=== PATIENT | male | born 1950 | race Caucasian/White ===

== ENCOUNTER 2019-01-14 13:55 | Observation (INO) ==
[2019-01-14] MEDS ORDERED: ASPIRIN PO ONE (14:04)
[2019-01-14 14:45] LABS: BASO# 0.02 X1000 (0.0-0.2); BASO% 0.3 % (0.0-0.8); EOS# 0.29 X1000 (0.0-0.7); EOS% 4.1 % (0.0-10.0); HEMATOCRIT 34.8 % (42.0-52.0); HEMOGLOBIN 11.5 g/dL (14.0-18.0); IMM GRAN# 0.03 X1000 (0.0-0.04); IMM GRAN% 0.4 % (0.0-0.5); LYMPH# 1.56 X1000 (1.2-3.4); MCH 27.3 PG (27-31); MCV 82.7 FL (81-99); MONO# 0.58 X1000 (0.11-0.59); MONO% 8.2 % (1.7-9.3); MPV 8.6 FL (7.4-10.4); NEUT# 4.61 X1000 (1.4-6.5); PLT 296 X1000 (130-400); RBC 4.21 XMIL (4.7-6.1); RDW 15.4 % (11.5-14.5); WBC 7.09 X1000 (4.8-10.8)
--- NOTE | 2019-01-14 15:00 | Diag Imaging Result Doc PS360 ---
EXAM: CHEST-2 VIEWS HISTORY: chest pain TECHNIQUE: Chest two views COMPARISON: 12/05/2015 FINDINGS: The lungs are well expanded. The heart is not enlarged. The vessels are not distended. There are no infiltrates. No pleural effusions. IMPRESSION: No acute abnormality. Electronically signed by Philippe Trimble 01/14/2019 2:57 PM
--- NOTE | 2019-01-14 15:14 | EKG Report ---
Test Performed on : 01/14/2019 2:12:28 PM Test Reason : chest pain Blood Pressure : / mmHG Vent. Rate : 051 BPM Atrial Rate : 051 BPM P-R Int : 192 ms QRS Dur : 114 ms QT Int : 476 ms P-R-T Axes : 011 -10 041 degrees QTc Int : 438 ms Sinus bradycardia. Incomplete left bundle branch block Nonspecific T wave abnormality Abnormal ECG No previous ECGs available Unconfirmed Result
[2019-01-14 15:32] LABS: ALBUMIN 3.9 g/dL (3.5-5.0); CALCIUM 8.8 mg/dL (8.8-10.2); CREATININE 1.4 mg/dL (0.7-1.2); MAGNESIUM 2.2 mg/dL (1.5-2.7); POTASSIUM 3.9 mmol/L (3.5-5.1); TOTAL BILIRUBIN 0.4 mg/dL (0.20-1.00); TOTAL PROTEIN 7.5 g/dL (6.3-8.3)
[2019-01-14 15:52] LABS: CK-MB 5.27 ng/mL (0.0-5.0)
--- NOTE | 2019-01-14 16:48 | PROVIDER DOCUMENTATION ---
This chart was entered by Dani Medrano Scribe, acting as scribe for Kory Schumacher MD. HPI-Chest Pain - General Chief Complaint: Chest Pain Stated Complaint: CHEST PAINS Time Seen by Provider: 01/14/19 14:10 Source: patient Allergies/Adverse Reactions: Patient Allergies Allergy/AdvReac Type Severity Reaction Status Date / Time egg Allergy ANAPHYLAXIS Verified 01/14/19 14:37 Milk Containing Products Allergy Unknown Verified 01/14/19 14:37 Home Medications: Home Medication List Medication Instructions Recorded Confirmed Last Taken Type Furosemide [Lasix] 40 mg PO BID 05/19/14 01/14/19 11/05/15 08:00 History Insulin Novolog 70/30 [Novolog Mix 80 units SQ BID 05/19/14 01/14/19 11/05/15 08:00 History 70/30] Lisinopril 20 mg PO DAILY 11/17/14 01/14/19 11/05/15 08:00 History Omeprazole 20 mg PO BID 08/25/15 01/14/19 11/05/15 08:00 History Atenolol 25 mg PO DAILY 01/14/19 01/14/19 Unknown History Sertraline [Zoloft] 50 mg PO DAILY 01/14/19 01/14/19 Unknown History - History of Present Illness-CP Nature of Presenting Problem: 68 yom presents to ed with cc of left side chest pain x 6 months. Reports worsening past 3 days with radiation into left arm and left shoulder. Reports 5/10 pain worse with exertion and has sob. Reports dizziness upon standing at times. Location: reports: other (left shoudler) Chest Pain Radiation: reports: arms, shoulders Quality of Pain: reports: sharp Severity in ED: moderate Onset/Duration: unsure Timing: still present, getting worse Review of Systems - Adult - REVIEW OF SYSTEMS - ADULT Constitutional: denies: chills, fever, fatique Eyes: reports: no symptoms reported Ears, Nose, Mouth & Throat: denies: ear pain, sinus problem, throat swelling Cardiovascular: reports: chest pain. denies: irregular heart rate, syncope Respiratory: reports: shortness of breath. denies: cough, dyspnea on exertion, pleurisy, wheezing Gastrointestinal: denies: abdominal pain, nausea, vomiting Genitourinary: denies: dysuria, discharge, frequent UTI's, hematuria Musculoskeletal: denies: bone pain, back pain, joint pain, neck pain Integumentary: reports: no symptoms reported Neurological: denies: ataxia, dizziness/vertigo, loss of balance, numbness, paresthesia, seizure Psychiatric: reports: no symptoms reported Endocrine: reports: no symptoms reported Hematologic/Lymphatic: reports: no symptoms reported Allergic/Immunologic: reports: no symptoms reported All Other Systems: Reviewed and Negative Past History - Adult - PAST MEDICAL HISTORY-ADULT Review of Records: reports: Nursing Assessment Review, Medications Reviewed Major Childhood Illnesses: reports: denies history Cardiovascular: reports: CHF, HTN Respiratory: reports: sleep apnea Gastrointestinal: reports: GERD Obstetrical/Gynecological: reports: denies history Genitourinary: reports: denies history Musculoskeletal: reports: denies history Neurological: reports: denies history Psychiatric: reports: ptsd Endocrine/Immune: reports: Diabetes Other Conditions: reports: cataract/glaucoma - PRIOR SURGERIES/PROCEDURES Surgical/Procedure History: reports: reviewed, not pertinent - IMMUNIZATION STATUS Childhood Immunizations: See Nurse Assessment Flu Vaccine: See Nurse Assessment - FAMILY HISTORY Family History: reviewed, not pertinent - SOCIAL HISTORY Smoking: other (former 37 years ago) Physical Exam-General - PHYSICAL EXAM-ADULT Initial Vital Signs Reviewed: Yes - CONSTITUTIONAL General Appearance: appears well, alert, no apparent distress, obese - EYES Eyes: PERRL/EOMI, pink conjunctivae - NECK Neck: non-tender, full range of motion, supple, normal inspection - RESPIRATORY Respiratory: chest non-tender, lungs clear, normal breath sounds, no pleuratic chest pain, no respiratory distress, no accessory muscle use. negative: crackles, rales, rhonchi, stridor, wheezing - CARDIOVASCULAR Cardiovascular: bradycardia (HR drops into the 40's) - GASTROINTESTINAL (ABDOMEN) Abdominal Exam: normal bowel sounds, non tender, soft, no organomegaly, no pulsatile mass - MUSCULOSKELETAL Back Exam: normal inspection Extremity: normal range of motion, non-tender - SKIN Integumentary: normal color, normal turgor, warm/dry - NEUROLOGIC Neurologic: grossly normal - PSYCHIATRIC Psych/Mental Status: normal mood/affect, normal thought content, normal thought process, oriented x 3 - HEART Score HEART Score: History: Moderately Suspicious HEART Score: ECG: Non-Specific Repolarization Disturbance/LBBB/PM HEART Score: Age: > or = 65 Years HEART Score: Risk Factors for Atherosclerotic Disease: 1 or 2 Risk Factors HEART Score: Troponin: < or = Normal Limit Total HEART Score:: 5 Progress - PLAN OF CARE/RESULTS Progress/Plan/Lab Results: Vital Signs - 8 hr 01/14/19 13:56 01/14/19 16:20 Temperature 98 F 98.2 F Pulse Rate 57 L 47 L Respiratory Rate 18 18 Blood Pressure 169/75 145/73 O2 Sat by Pulse Oximetry 97 97 Laboratory Results - last 24 hr 01/14/19 01/14/19 01/14/19 14:20 14:20 14:20 WBC 7.09 RBC 4.21 L Hgb 11.5 L Hct 34.8 L MCV 82.7 MCH 27.3 MCHC 33.0 RDW Std Deviation 15.4 H Plt Count 296 MPV 8.6 Immature Gran % (Auto) 0.4 Neut % (Auto) 65.0 Lymph % (Auto) 22.0 [place] % (Auto) 8.2 Eos % (Auto) 4.1 Baso % (Auto) 0.3 Immature Gran # (Auto) 0.03 Neut # (Auto) 4.61 Lymph # (Auto) 1.56 [place] # (Auto) 0.58 Eos # (Auto) 0.29 Baso # (Auto) 0.02 D-Dimer, Quantitative Sodium Potassium Chloride Carbon Dioxide Anion Gap BUN Creatinine Estimated GFR/1.73 m2 BUN/Creatinine Ratio Glucose Calculated Osmolality Calcium Magnesium Total Bilirubin AST ALT Alkaline Phosphatase Creatine Kinase 261 H Creatine Kinase Index 2.0 CK-MB (CK-2) 5.27 H Troponin T 0.011 Yhy-S-Ykwijqoffws Pept Total Protein Albumin Globulin Albumin/Globulin Ratio 01/14/19 01/14/19 01/14/19 14:20 14:20 14:20 WBC RBC Hgb Hct MCV MCH MCHC RDW Std Deviation Plt Count MPV Immature Gran % (Auto) Neut % (Auto) Lymph % (Auto) [place] % (Auto) Eos % (Auto) Baso % (Auto) Immature Gran # (Auto) Neut # (Auto) Lymph # (Auto) [place] # (Auto) Eos # (Auto) Baso # (Auto) D-Dimer, Quantitative 0.52 Sodium 139 Potassium 3.9 Chloride 99 Carbon Dioxide 27 Anion Gap 13 BUN 17 Creatinine 1.4 H Estimated GFR/1.73 m2 50 BUN/Creatinine Ratio 12 Glucose 278 H Calculated Osmolality 289 Calcium 8.8 Magnesium 2.2 Total Bilirubin 0.40 AST 18 ALT 20 Alkaline Phosphatase 110 Creatine Kinase Creatine Kinase Index CK-MB (CK-2) Troponin T Oen-H-Zudugyvmspw Pept 180 Total Protein 7.5 Albumin 3.9 Globulin 4.0 Albumin/Globulin Ratio 1.0 Orders Category Date Time Status Admit - [facility] Routine AdmDCTranf 01/14/19 17:20 Active Cardiac Monitoring DIRECTED Care 01/14/19 14:04 Active Nursing- Obtain EKG ONCE Care 01/14/19 14:04 Active CHEST-2 VIEWS [RAD] Stat Exams 01/14/19 14:04 Completed CBC WITH DIFF [HEME] Stat Lab 01/14/19 14:20 Completed CK PROFILE [SP CHEM] Stat Lab 01/14/19 14:20 Completed CK PROFILE [SP CHEM] Stat Lab 01/14/19 17:36 Ordered CMP [COMPREHENSIVE METABOLIC PANEL] [CHEM] Stat Lab 01/14/19 14:20 Completed D-DIMER [COAG] Stat Lab 01/14/19 14:20 Completed MAGNESIUM [CHEM] Stat Lab 01/14/19 14:20 Completed PRO B-NATRIURETIC PEPTIDE Stat Lab 01/14/19 14:20 Completed TROPONIN T Stat Lab 01/14/19 14:20 Completed TROPONIN T Stat Lab 01/14/19 17:36 Ordered Aspirin Med 01/14/19 14:04 Discontinued 325 mg PO NOW ONE EKG [EKG] Stat Ther 01/14/19 14:04 Draft EKG [EKG] Stat Ther 01/14/19 17:36 Ordered Transfer/Admit Order [TRANSFER] Routine Transfer 01/14/19 16:47 Ordered Discussed findings with pt who asked to be sent to [facility] for admission. At recheck pt now would like to stay here. Pt was discussed with Dr Cervantes who agreed to admit. Result Diagrams: 01/14/19 14:20 01/14/19 14:20 - EKG 1 Time of EKG reading by physician:: 14:12 EKG Read and Signed by:: Kory Schumacher EKG Interpretation (*Must complete 3 of following elements*): Abnormal Rate: 51 Rhythm: sinus shima [place]: normal QRS: LBB (incomplete) ST Wave: non-specific ST changes 2 Time of EKG reading by physician:: 17:49 EKG Read and Signed by:: Kory Schumacher EKG Interpretation (*Must complete 3 of following elements*): Abnormal (prolomged QT) Rate: 48 Rhythm: SB [place]: normal ST Wave: non-specific ST changes - XRAY 1 XRAY: Bilateral XRAY Study: Chest Impression: Normal (EXAM: CHEST-2 VIEWS HISTORY: chest pain TECHNIQUE: Chest two views COMPARISON: 12/05/2015 FINDINGS: The lungs are well expanded. The heart is not enlarged. The vessels are not distended. There are no infiltrates. No pleural effusions. IMPRESSION: No acute abnormality. Electronically signed by Philippe Trimble 01/14/2019 2:57 PM 01/14/191456 Interpreting Physician: Philippe Trimble MD Dictated Date/Time: 01/14/191456 cc: Kory Schumacher MD; None,PCP) - CONSULTS/PCP/HOSPITALIST Notification #1 *Consult/PCP/Hospitalist*: [facility] Time Discussed: 16:15 Consult Disposition: other (sending transfer packet.) #2 Consult: Dr Cervantes Time Discussed: 16:47 Consult Disposition: Admit Departure - Departure Date of Disposition Decision: 01/14/19 Time of Disposition Decision: 16:47 DIAGNOSIS: Chest pain, Symptomatic bradycardia Disposition: ADMITTED INPATIENT 09 Certified Medical Emergency: Emergent Condition: Fair Referrals and Follow-Ups: None,PCP [Primary Care Provider] - - Critical Care Note This patient required my direct & personal management of CC.: No Attestation - Physician/ HERNAN Attestation Patient care was provided by Advanced Practice Provider:: No The physician spent face to face time with patient:: Yes Advanced Practice Provider documentation review:: Supervising physician onsite and consulted in the evaluation and care of this patient. The physician did have a face to face encounter with the patient. This chart was documented by the indicated scribe, (Dani Medrano Scribe) and accurately reflects the services I performed and decisions made by me, Kory Schumacher MD, as attested by the provider's signature.
--- NOTE | 2019-01-14 18:04 | EKG Report ---
Test Performed on : 01/14/2019 5:49:17 PM Test Reason : #2 Blood Pressure : / mmHG Vent. Rate : 048 BPM Atrial Rate : 048 BPM P-R Int : 184 ms QRS Dur : 104 ms QT Int : 518 ms P-R-T Axes : 027 002 039 degrees QTc Int : 462 ms Sinus bradycardia. Nonspecific T wave abnormality Prolonged QT Abnormal ECG When compared with ECG of 14-JAN-2019 14:12, (Unconfirmed) No significant change was found Unconfirmed Result
--- NOTE | 2019-01-14 18:06 | HISTORY AND PHYSICAL ---
PRIMARY CARE PHYSICIAN: Dr. Keller at the [facility] in [place]. CHIEF COMPLAINT: Chest pain. HISTORY OF PRESENT ILLNESS: This is a 68-year-old morbidly obese, male who presents to [facility] ER with left-sided chest pain intermittently over the last 6 months, but has worsened over the last 3 days. States that it is substernal chest pain that radiates to his left shoulder and down his arm causing numbness in his 3rd, 4th and 5th fingers, rated it a 5/10. The pain is worse with exertion, and better at rest. Also, has had some associated shortness of breath and dizziness. His heart score was a 5. His cardiac enzymes x1 set were negative. He is noted on his EKG to have some bradycardia at 51, but has been as low as 47. Chest x-ray showed no acute abnormality. So, he will be admitted for further evaluation and treatment. PAST MEDICAL HISTORY: 1. Congestive heart failure. 2. Hypertension. 3. GERD. 4. Sleep apnea. 5. PTSD. 6. Diabetes type 2. 7. Chronic kidney disease. PAST SURGICAL HISTORY: 1. Epididymitis surgery x2. 2. Vocal cord surgery. FAMILY HISTORY: His mom had an PR. His father had cancer. SOCIAL HISTORY: Currently lives alone. Denies any tobacco, alcohol or illicit drug. ALLERGIES: To egg and milk containing products. HOME MEDICATIONS: 1. We will hold his atenolol 25 mg p.o. daily. 2. Continue his Lasix 40 mg p.o. b.i.d. 3. NovoLog mix 70/30, 80 units subcutaneously b.i.d. 4. Lisinopril 20 mg p.o. daily. 5. Omeprazole 20 mg p.o. b.i.d. will be held. 6. We will continue his Zoloft 50 mg p.o. daily. LABORATORY DATA: Showed a white blood cell count of 7.09, hemoglobin of 11.5, hematocrit 34.8, platelets 296,000. D-dimer of 0.52. Sodium of 139, potassium 3.9, chloride 99, CO2 27, BUN of 17, creatinine 1.4, glucose 278, magnesium of 2.2. Initial cardiac enzymes showed a creatine kinase of 261, CK-MB of 5.27, with a troponin of 0.011. ProBNP of 180. Chest x-ray showed no acute abnormality. EKG showed sinus bradycardia at 51. REVIEW OF SYSTEMS: He denied any fever, chills, blurred vision. He was positive for dizziness, shortness of breath, left-sided substernal chest pain that radiated to his left shoulder and arm with numbness in his 3rd, 4th, and 5th finger. Denied any abdominal pain, constipation, diarrhea, burning or hurting with urination. PHYSICAL EXAMINATION: VITAL SIGNS: On arrival, he had a temperature of 98 degrees, pulse 57, respirations 18, blood pressure 169/75, saturating 97% on room air. It is noted that his pulse did get as low as 47. GENERAL: This is a 68-year-old, morbidly obese, male lying in the bed and answers questions appropriately. HEENT: Normocephalic, atraumatic. Normal ENT inspection. Oropharynx and nares are clear. EYES: Pupils are equal, round, and reactive to light and accommodation. Extraocular movements are intact. NECK: Normal inspection. Normal range of motion. LUNGS: Clear to auscultation bilaterally with equal lung expansion and chest wall movement. HEART: With sinus bradycardia but no murmurs, rubs, or gallops noted. ABDOMEN: Soft, nontender, nondistended. Bowel sounds are present x4 quadrants. MUSCULOSKELETAL: He has 5/5 strength x4 extremities. NEUROLOGICAL: The cranial nerves 2-12 appear grossly intact. ASSESSMENT: 1. Chest pain. 2. Diabetes type 2 with hyperglycemia. 3. Bradycardia. 4. Hypertension. 5. Chronic kidney disease. PLAN: He will be admitted to the medical unit at [facility], placed on telemetry, O2 per protocol. We will do serial cardiac enzymes, have diabetic diet, NPO after midnight for a myocardial perfusion scan in the a.m. We will hold his beta sonam. Continue his other home medications as previously identified and do serial cardiac enzymes x3. Check a CBC, BMP, lipid profile in the a.m. Further orders after being seen by attending. Dictated by TENZIN Hernández for Arias Cervantes MD cc: TENZIN Hernández MD Dr. Ortega
[2019-01-14] MEDS ORDERED: TYLENOL PO PRN (18:23)
[2019-01-14] MEDS ORDERED: ZOFRAN IV PRN (18:23)
[2019-01-14] MEDS ORDERED: NITROGLYCERIN SL PRN (18:23)
[2019-01-14 19:41] LABS: CK INDEX 1.8 (0.0-2.5); CK-MB 4.42 ng/mL (0.0-5.0)
--- NOTE | 2019-01-14 20:15 | PROGRESS NOTE ---
DATE: 01/14/2019 PROBLEM LIST: 1. The patient came in with chest discomfort and a low heart rate. He has had some weakness and things of that nature for the last several days. He reports a history of pericarditis. He reports a history of CHF for which he is on atenolol and Lasix. He is diabetic and hypertensive. No strong family history, but he does have a history of other issues. 2. His physical exam is unremarkable. He has a protuberant abdomen, but other than that, he seems to be doing okay. 3. We will place him in OBS, get serial enzymes, get an echocardiogram and perfusion scan tomorrow, and follow. REFERRING PHYSICIAN: MSDr. Keller in [place]. cc: Arias Cervantes MD
[2019-01-14] MEDS ORDERED: NOVOLOG MIX 70/30 (PARKWAY) SUBQ SCH (21:00)
[2019-01-14 21:29] LABS: CALCIUM 8.7 mg/dL (8.8-10.2); CREATININE 1.3 mg/dL (0.7-1.2); POTASSIUM 3.9 mmol/L (3.5-5.1)
[2019-01-14] MEDS: HUMULIN R (PARKWAY) SUBQ SCH (22:19)
[2019-01-14] MEDS: LASIX PO SCH (22:20)
[2019-01-15] MEDS: HUMULIN R (PARKWAY) SUBQ SCH (06:43)
[2019-01-15] MEDS ORDERED: PRILOSEC PO SCH (07:00)
[2019-01-15 07:19] LABS: BASO# 0.02 X1000 (0.0-0.2); BASO% 0.3 % (0.0-0.8); EOS# 0.22 X1000 (0.0-0.7); EOS% 3.3 % (0.0-10.0); HEMOGLOBIN 10.2 g/dL (14.0-18.0); IMM GRAN# 0.03 X1000 (0.0-0.04); IMM GRAN% 0.5 % (0.0-0.5); LYMPH# 1.57 X1000 (1.2-3.4); LYMPH% 23.8 % (20.5-51.1); MCH 26.4 PG (27-31); MCHC 31.9 g/dL (33-37); MCV 82.9 FL (81-99); MONO# 0.46 X1000 (0.11-0.59); MPV 8.9 FL (7.4-10.4); NEUT# 4.29 X1000 (1.4-6.5); NEUT% 65.1 % (42.2-75.2); PLT 287 X1000 (130-400); RBC 3.86 XMIL (4.7-6.1); RDW 15.1 % (11.5-14.5); WBC 6.59 X1000 (4.8-10.8)
[2019-01-15 07:25] LABS: HEMOGLOBIN A1C 7.6 % (4.8-6.0)
--- NOTE | 2019-01-15 08:26 | EKG Report ---
Test Performed on : 01/15/2019 05:45:46 AM Test Reason : CP Blood Pressure : / mmHG Vent. Rate : 051 BPM Atrial Rate : 051 BPM P-R Int : 184 ms QRS Dur : 118 ms QT Int : 514 ms P-R-T Axes : 009 -31 045 degrees QTc Int : 473 ms Sinus bradycardia. Left axis deviation Incomplete left bundle branch block Nonspecific T wave abnormality Prolonged QT Abnormal ECG When compared with ECG of 14-JAN-2019 17:49, (Unconfirmed) Incomplete left bundle branch block is now present Unconfirmed Result
[2019-01-15] MEDS ORDERED: ZOLOFT PO SCH (09:00)
[2019-01-15] MEDS ORDERED: PRINIVIL PO SCH (09:00)
[2019-01-15] MEDS ORDERED: ASPIRIN PO SCH (09:00)
--- NOTE | 2019-01-15 11:16 | GRADED EXERCISE REPORT ---
DATE: 01/15/2019 STUDY PERFORMED: Lexiscan EKG interpretation administration. INDICATION: Chest pain. FINDINGS: The patient's baseline EKG showed nonspecific changes. He underwent Lexiscan infusion, 0.4 mg. Baseline heart rate 51, baseline blood pressure 148/84. He did not have any significant chest pain during the test. Peak heart rate 62, peak blood pressure 171/80. The test was felt to be clinically and electrically negative. Myocardial perfusion reported separately. cc: Arias Cervantes MD
[2019-01-15] MEDS: LASIX PO SCH (13:09)
[2019-01-15] MEDS ORDERED: LEXISCAN ONE (15:31)
[2019-01-15 15:54] VITALS: BP 172/72
--- NOTE | 2019-01-15 17:55 | Diag Imaging Result Document ---
PROCEDURE NAME: MYOCARDIAL PERF SCAN, STR/REST - 01/15/2019 SUMMARY: The patient was administered 15.8 mCi of technetium 99-m sestamibi after which resting cardiac images were obtained. The patient was subsequently administered Lexiscan 0.4 mg intravenously, after which the heart rate went from 51 beats per minute to 62 beats per minute, and the blood pressure went from 147/84 to 171/80. With Lexiscan, the patient denied chest discomfort. Following the administration of Lexiscan, the patient was administered 45.9 mCi of technetium-99m sestamibi, after which gated stress cardiac images were obtained. Baseline ECG demonstrated sinus bradycardia and mild nonspecific T-wave flattening. With Lexiscan, there were no diagnostic ST-segment changes. SPECT images were reconstructed in the short, horizontal, and vertical long axis. Review of these images demonstrated diffuse inhomogeneities on both stress and resting images, probably related to the patient's morbid obesity. There is mildly to moderately diminished activity in the inferior wall on stress images, which is also evident on resting images. No significant reversibility is evident. Gated images demonstrated a calculated left ventricular ejection fraction of 71% with symmetrical wall motion/thickening. CONCLUSIONS: 1. Adequate response to Lexiscan. 2. Clinically negative for chest pain. 3. Electrocardiographically negative for Lexiscan induced myocardial ischemia. 4. Lexiscan sestamibi images technically difficult with diffuse inhomogeneities, probably related to the patient's morbid obesity. There is nonreversible mildly to moderately diminished activity in the inferior wall with corresponding preserved regional wall motion, probably related to soft tissue attenuation. There is no convincing scintigraphic evidence of inducible myocardial ischemia. Normal left ventricular systolic function demonstrated. cc: MD Salome eLe CRNP
--- NOTE | 2019-01-15 22:00 | ECHO REPORT ---
ORDER DATE: 01/15/2019 MEASUREMENTS: Left atrial diameter 4.3, aortic root diameter 3.5. SUMMARY: 1. Technically difficult study due to limited acoustic window quality. Intravenous echocontrast agent was utilized to enhance endocardial definition. 2. The aortic valve is trileaflet and opens normally on 2-dimensional images. Peak gradient across the aortic valve is less than 10 mmHg. Mitral and tricuspid valves are without evidence of structural abnormality, while the pulmonic valve is not well demonstrated. The aortic root is normal in size. 3. Normal left ventricular chamber size with borderline concentric left ventricular hypertrophy suggested. Estimated left ventricular ejection fraction appears to be at least 65%. No regional wall motion abnormalities evident. Left atrium is mildly enlarged. The right atrium and right ventricle are normal in size, with grossly preserved right ventricular systolic function. 4. No pericardial effusion. 5. Appearance of inferior vena cava suggests normal central venous pressure. cc: MD Arias Lee MD
--- NOTE | 2019-01-16 00:56 | DISCHARGE SUMMARY ---
ADMISSION DATE: 01/14/2019 DISCHARGE DATE: 01/15/2019 The patient came in with atypical chest pain. DISCHARGE DIAGNOSIS: Atypical chest pain. HOSPITAL COURSE: Reported history of CHF, but that has not been confirmed and his Echo shows an EF of 71%. In any case, he was placed in observation. Serial cardiac enzymes were negative. I felt stable for him to be discharged. The patient will be discharged. Follow closely with Cardiology. His Lexiscan is read as negative for inducible myocardial ischemia. We will discharge him on his current medications, atenolol, Lasix lisinopril, NovoLog, omeprazole, and I will add aspirin, enteric-coated 81 mg. Discharge condition is stable. We will continue to follow closely. cc: MD Gian Massey MD
== END 2019-01-15 18:55 | disposition home or self-care (01) ==
LOC: P.ED 13:55 → P.MEDSURG 13:55
PROVIDERS: ATTEND Internal Medicine
CPT/HCPCS: 36415; 71020; 71046; 78452; 80048; 80053; 80061; 82550; 82553; 82948; 83036; 83721; 83735; 83880; 84484; 85025; 85379; 93005; 93017; 93306; 94761; 99285; A9270; A9500; C8929; J1815; J2785; Q9957; XXXXX